=== PATIENT | female | born 1985 | race Caucasian/White ===

== ENCOUNTER 2016-10-31 12:09 | Emergency (ER) | payer MEDICAID ==
[2016-10-31 12:19] VITALS: BP 123/74
--- NOTE | 2016-10-31 12:29 | EDM.PDOC ---
ED HPI ENT - General Chief Complaint: ENT Problem Stated Complaint: SORE THROAT Time Seen by Provider: 10/31/16 12:27 Source of Information: Reports: Patient History Limitations: Reports: No limitations - History of Present Illness INITIAL COMMENTS - FREE TEXT/NARRATIVE: Patient is a 30-year-old female who presents to the ED complaining of a productive cough with clear/yellow mucous, sinus congestion, sneezing, mild sore throat that started this past Tuesday. States Tuesday and she did not sleep well due to the coughing fits. Notes she is will rested today. No fever, nausea/vomiting, or body aches associated with this. Patient smokes a half pack per day for 10 years. States she has been taking OTC cough medicine with little improvement to conditions. Notes 1 wk prior to onset she had nausea with vomiting, body aches, chills, that resolved two days afterwards. States her and son had similar symptoms. She has no pertinent past medical history. Timing/Duration: Reports: Constant, Waxing/waning Severity: mild Location: Reports: nose, throat Quality: Denies: Ache Worsens with: Reports: Other (coughing) Associated Symptoms: Reports: cough, sputum (clear). 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 Denies: Ear pain, Throat swelling Respiratory: Reports: cough, sputum. Denies: shortness of breath Cardiovascular: Denies: Chest pain, Dyspnea on exertion GI/Abdominal: Denies: Abdominal pain, Constipation, Diarrhea, Nausea, Vomiting Musculoskeletal: Denies: muscle pain Neurological: Denies: dizziness, headache, numbness, tingling ED EXAM, ENT - Physical Exam Exam: See Below Exam Limited By: No limitations General Appearance: alert, WD/WN, no apparent distress Eye Exam: bilateral eye: EOMI, PERRL Ears: normal external exam, normal canal, hearing grossly normal, normal TMs Nose: clear rhinorrhea, nasal discharge, nasal swelling Mouth/Throat: Normal inspection, Normal oropharynx, Pharyngeal erythema. No: Dry mucous membrane, Tongue swelling, Tonsillar erythema, Tonsillar exudates, Tonsillar swelling, Trismus, Uvular deviation, Uvular edema Head: atraumatic, normocephalic Neck: normal inspection, supple, non-tender, full range of motion. No: lymphadenopathy (L), lymphadenopathy (R) Respiratory/Chest: no respiratory distress, lungs clear, normal breath sounds, no accessory muscle use, chest non-tender Cardiovascular: normal peripheral pulses, regular rate, rhythm Neurological: alert, oriented, CN II-XII intact, normal cognition Psychiatric: normal affect, normal mood Skin: Warm, Dry, Intact, Normal color Course - Vital Signs Last Recorded V/S: Last Vital Signs Temp 97.6 F 10/31/16 12:17 Pulse 84 10/31/16 12:17 Resp 19 10/31/16 12:17 BP 123/74 10/31/16 12:17 Pulse Ox 95 10/31/16 12:17 - Orders/Labs/Meds Orders: Active Orders 24 hr Category Date Time Status CULTURE STREP A CONFIRMATION [RM] Stat Lab 10/31/16 12:18 Results Rapid Strep w/culture conf [STREP SCRN A RAPID W CULT Lab 10/31/16 12:18 Results CONF] [RM] Stat - Re-Assessments/Exams Free Text/Narrative Re-Assessment/Exam: Influenza and Strep screen obtained. Strep screen was negative. 10/31/16 13:04 Influenza screen was negative. Will send patient home with a prescription for promethazine and codeine. Etiology of symptoms are viral and will resolve in the next few days on there own accord. Instructions as documented on discharge. Departure - Departure Time of Disposition: 13:05 Disposition: Home, Self-Care 01 Condition: good Clinical Impression: Viral upper respiratory tract infection with cough, Bronchitis Nicotine addiction Qualifiers: Nicotine product type: cigarettes Substance use status: uncomplicated Qualified Code(s): F17.210 - Nicotine dependence, cigarettes, uncomplicated Prescriptions: Promethazine HCl/Codeine [Prometh-Codein 6.25-10 mg/5 ml] 5 - 10 ml PO Q6HR PRN #120 ml PRN Reason: Cough Instructions: Smoking Cessation, Tips for Success, [id number], Acute Bronchitis, [id number], Upper Respiratory Infection, Adult, [id number] Referrals: PCP,None [Primary Care Provider] - Claudia Kay PA [Physician Lead Sharepoint Developer] - Forms: ED Department Discharge, Return to Work/School Form Additional Instructions: Influenza and strep screen were negative. Etiology of symptoms are viral and will resolve on their own accord over the next few days. Cough can persist up to 1-2 weeks. Treatment is symptomatic care only. This includes Tylenol and ibuprofen as needed for discomfort. Push the fluids. Ensure adequate rest. Stop smoking. Followup with primary care provider in the next 3-5 days if symptoms have not drastically improved. Take promethazine and codeine 5-10 mls every 6 hours as needed for cough. Suggest taking this at night prior to bed. No driving while taking this medication. Take Mucinex 600 mg twice a day for the next 5 days. Return back to the ED for any new or worsening symptoms. - My Orders Last 24 Hours: My Active Orders 10/31/16 12:18 CULTURE STREP A CONFIRMATION [] Stat Rapid Strep w/culture conf [STREP SCRN A RAPID W CULT CONF] [] Stat - Assessment/Plan Last 24 Hours: My Active Orders 10/31/16 12:18 CULTURE STREP A CONFIRMATION [RM] Stat Rapid Strep w/culture conf [STREP SCRN A RAPID W CULT CONF] [] Stat
== END 2016-10-31 13:26 | disposition home or self-care (01) ==
LOC: JD.ED 12:09
DX: J06.9 Acute upper respiratory infection, unspecified (principal); J40 Bronchitis, not specified as acute or chronic; F41.9 Anxiety disorder, unspecified; F17.210 Nicotine dependence, cigarettes, uncomplicated
CPT/HCPCS: 87081; 87430; 87804; 99283

== ENCOUNTER 2018-04-30 19:54 | Emergency (ER) | payer BC, MEDICAID ==
[2018-04-30 20:05] VITALS: BP 124/90
[2018-04-30] MEDS ORDERED: Diphtheria,Pertussis(Acell),Tetanus Vaccine 0.5 ML SDV IM ONE (20:57)
[2018-04-30] MEDS ORDERED: Lidocaine/EPINEPHrine/Tetracaine Soln 1 ML TOP STA (20:58)
[2018-04-30] MEDS ORDERED: Lidocaine 1% with EPINEPHrine 1:100,000 20 ML MDV INJECT ONE (21:49)
[2018-04-30] MEDS ORDERED: Bupivacaine 0.5% 10 ML SDV INJECT ONE (21:49)
--- NOTE | 2018-04-30 22:19 | EDM.PDOC ---
ED HPI GENERAL MEDICAL PROBLEM - General Chief Complaint: Laceration Stated Complaint: laceration to arm Time Seen by Provider: 04/30/18 20:49 Source of Information: Reports: Patient, Significant Other (Boyfriend) History Limitations: Reports: No Limitations - History of Present Illness INITIAL COMMENTS - FREE TEXT/NARRATIVE: The patient states that she was fishing, seated in a chair perched on some rocks , when the chair flipped over around 18:15 tonight. The patient states that she sustained a cut to her distal left forearm by the rocks. She is otherwise uninjured. The patient believes that her last tetanus vaccination was about 7 years ago, but she is not sure. The patient does not have a PCP. left lower forearm Pain Score (Numeric/FACES): 4 - Related Data Allergies Allergy/AdvReac Type Severity Reaction Status Date / Time No Known Allergies Allergy Verified 04/30/18 20:05 Home Meds: Home Meds . 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: Psychiatric History: Reports: Anxiety Endocrine/Metabolic History: Reports: Obesity/BMI 30+ - Past Surgical History Female Surgical History: Reports: Section (x 1) Social & Family History - Family History Family Medical History: Noncontributory - Tobacco Use Smoking Status *Q: Current Every Day Smoker Years of Tobacco use: 12 Packs/Tins Daily: 0.5 Packs/Tins Daily Comment: Down from 1 ppd - Caffeine Use Caffeine Use: Reports: Coffee - Alcohol Use Alcohol Use History: Yes Alcohol Use Frequency: Socially - Recreational Drug Use Recreational Drug Use: Yes Drug Use in Last 12 Months: No Recreational Drug Type: Reports: Marijuana/Hashish (last smoked in 2007) - Living Situation & Occupation Living situation: Reports: Single, with Significant Other (Boyfriend), with Family (Son) Occupation: Employed ([employer]) ED ROS GENERAL - Review of Systems Review Of Systems: ROS reveals no pertinent complaints other than HPI. ED EXAM, SKIN/RASH Exam: See Below Exam Limited By: No Limitations General Appearance: Alert, WD/WN, No Apparent Distress Extremities: Other (Approximately 8.5 cm laceration in a spiral fashion around the distal left forearm, ulnar aspect. Neurovascular status of the left upper extremity is intact. Strength is normal, with no tendinous injury suspected.) ED SKIN PROCEDURES - Laceration/Wound Repair Left Arm Lac/Wound length In cm: 8.5 Appearance: Subcutaneous, Linear, Clean Distal NVT: Neuro & Vascular Intact, No Tendon Injury Anesthetic Type: Local Local Anesthesia - Lidocaine (Xylocaine): 1% with EPI (50:50 admixture) Local Anesthesia - Bupivicaine (Marcaine): 0.5% Plain (50:50 admixture) Local Anesthetic Volume: 4cc Skin Prep: Providone-Iodine (Betadine) Exploration/Debridement/Repair: Wound Explored, In a Bloodless Field, Explored to Base, No Foreign Material Found, Wound Margins Revised Closed with: Sutures Suture Size: 3-0 # of Sutures: 20 Suture Type: Nylon (Ethilon), Running, Simple Drain Placement: No Sterile Dressing Applied: Nurse Tetanus Status Addressed: Yes Complications: No Course - Vital Signs Last Recorded V/S: Last Vital Signs Temp 37.1 C 04/30/18 20:01 Pulse 87 04/30/18 20:01 Resp 18 04/30/18 20:01 BP 124/90 04/30/18 20:01 Pulse Ox 100 04/30/18 20:01 - Orders/Labs/Meds Meds: Medications Discontinued Medications Generic Name Dose Route Start Last Admin Trade Name Orestes PRN Reason Stop Dose Admin Bupivacaine HCl 10 ml 04/30/18 21:49 04/30/18 22:16 Sensorcaine-Mpf 0.5% INJECT 04/30/18 21:50 10 ml ONETIME ONE Administration Diphtheria/Tetanus/Acell Pertussis 0.5 ml 04/30/18 20:57 04/30/18 21:13 Adacel IM 04/30/18 20:58 0.5 ml .ONCE ONE Administration Lidocaine/Epinephrine 20 ml 04/30/18 21:49 04/30/18 22:16 Xylocaine 1% With Epinephrine 1:100,000 INJECT 04/30/18 21:50 20 ml ONETIME ONE Administration Lidocaine/Tetracaine 4 ml 04/30/18 20:58 04/30/18 21:14 Let Soln TOP 04/30/18 20:59 4 ml ONETIME STA Administration - Re-Assessments/Exams Free Text/Narrative Re-Assessment/Exam: 04/30/18 22:13 There was good blanching to the edges of the wound following application of LET , however, the patient reported inadequate anesthesia, therefore a 50:50 mixture of lidocaine 1% with epinephrine and bupivacaine 0.5% without epinephrine was locally ejected. 20 simple running sutures were placed to close the wound. The patient tolerated the procedure well. A clean bandage will be applied per the RN. Antibiotics are not indicated. The patient received a tetanus vaccination during this ED visit. Departure - Departure Time of Disposition: 22:14 Disposition: Home, Self-Care 01 Condition: Good Clinical Impression: Laceration of left forearm - Discharge Information *PRESCRIPTION DRUG MONITORING PROGRAM REVIEWED*: Not Applicable *COPY OF PRESCRIPTION DRUG MONITORING REPORT IN PATIENT CELI: Not Applicable Instructions: Laceration Care, Adult Referrals: PCP,None [Primary Care Provider] - Forms: ED Department Discharge Additional Instructions: You were seen in the emergency room after sustaining a laceration to your left forearm. Your wound was closed with 20 running sutures. Keep the wound clean with ordinary soap and water when you bathe, then pat dry. You may apply a clean dressing if there is a chance that the wound may get dirty , or if the sutures interfere with your clothing. We recommend that you NOT apply an antibiotic ointment. The sutures should be ready for removal by , 05/11/2018. This can be done at a walk-in clinic, by a nurse at your doctor's office, or in the ER. DO NOT attempt to remove the sutures by yourself. Take [id number] Tylenol or ibuprofen as needed for discomfort. You received a tetanus vaccination during your ER visit. The wound should not get infected, however, if there is a concern of infection, please return to the ER for reevaluation.
== END 2018-04-30 22:35 | disposition home or self-care (01) ==
LOC: JD.ED 19:54
DX: S51.812A Laceration without foreign body of left forearm, initial encounter (principal); F17.210 Nicotine dependence, cigarettes, uncomplicated; Z23 Encounter for immunization; W22.8XXA Striking against or struck by other objects, initial encounter
CPT/HCPCS: 12004; 90471; 90715; 99283; A9270; J3490

== ENCOUNTER 2020-12-24 19:44 | Emergency (ER) | payer SELFPAY ==
[2020-12-24] MEDS ORDERED: Ondansetron 4 MG/2 ML SDV IVPUSH ONE (20:01)
[2020-12-24] MEDS ORDERED: Sodium Chloride 0.9% 1,000 ML IV ONE (20:01)
[2020-12-24 20:04] VITALS: BP 117/76; PULSE 84
--- NOTE | 2020-12-24 20:14 | EDM.PDOC ---
ED HPI GENERAL MEDICAL PROBLEM - General Chief Complaint: Abdominal Pain Stated Complaint: abdominal pain Time Seen by Provider: 12/24/20 19:53 Source of Information: Reports: Patient, Old Records (Visit and labs from [facility] visit today), RN Notes Reviewed History Limitations: Reports: No Limitations - History of Present Illness INITIAL COMMENTS - FREE TEXT/NARRATIVE: Patient is a 35-year-old female who presents to the ER for the evaluation of her abdomen pain. Patient woke up this morning, with diffuse abdominal discomfort, that seemed quite crampy in nature, she thought maybe she had to use the restroom, so she went to the bathroom to had a bowel movement. She notes this did not seem to relieve the crampiness. She then went to work in [facility], and felt that she had to use the bathroom again due to the cramping nature, and again this seemed to not help the abdomen pain. She notes that she has gone to the bathroom about 6 or 8 times today due to the cramping sensation. She points to her mid abdomen as the source of discomfort, and states that it radiates around her abdomen into her back. She does have nausea but no vomiting, she has had a decreased appetite today as well. She denies any fevers, diarrhea, chills or shortness of breath. She is not complaining of any dysuria, frequency or urgency. Patient has an IUD, so states she does not think she be . She is not been around anyone that is been known to be sick. She states that no one else is sick like this in her household, and does not think that she could have ate something bad. She does state that the cramping reminds her of the time she did have food poisoning, but she has not developed the the vomiting that associated with it. Patient states that she has felt somewhat constipated as well. She denies any other past medical history, and has not had any abdomen surgeries other than a . Patient states that her last meal was around 1 PM, and this was cereal. Abdomen Pain Score (Numeric/FACES): 6 - Related Data Allergies Allergy/AdvReac Type Severity Reaction Status Date / Time No Known Allergies Allergy Verified 04/30/18 20:05 Home Meds: Home Meds . 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 Psychiatric History: Reports: Anxiety Endocrine/Metabolic History: Reports: Obesity/BMI 30+ - Past Surgical History Female Surgical History: Reports: Section Social & Family History - Family History Family Medical History: No Pertinent Family History - Tobacco Use Tobacco Use Status *Q: Current Every Day Tobacco User Years of Tobacco use: 15 Packs/Tins Daily: 0.5 - Caffeine Use Caffeine Use: Reports: None - Recreational Drug Use Recreational Drug Use: No - Living Situation & Occupation Living situation: Reports: Single, with Significant Other (Boyfriend), with Family (Son) Occupation: Employed ([employer]) ED ROS GENERAL - Review of Systems Review Of Systems: Comprehensive ROS is negative, except as noted in HPI. ED EXAM, GI/ABD - Physical Exam Exam: See Below Exam Limited By: No Limitations General Appearance: Alert, WD/WN, No Apparent Distress Eyes: Bilateral: Normal Appearance Respiratory/Chest: No Respiratory Distress, Lungs Clear, Normal Breath Sounds, No Accessory Muscle Use, Chest Non-Tender Cardiovascular: Normal Peripheral Pulses, Regular Rate, Rhythm, No Edema GI/Abdominal Exam: Normal Bowel Sounds, Soft, No Distention, No Mass, Tender (lower abdomen mainly with deep palpation.) Extremities: Normal Inspection, Normal Range of Motion, Normal Capillary Refill Neurological: Alert, Oriented, CN II-XII Intact, Normal Cognition, No Motor/Sensory Deficits Psychiatric: Normal Affect, Normal Mood Skin Exam: Warm, Dry, Intact, Normal Color, No Rash Course - Vital Signs Last Recorded V/S: Last Vital Signs Temp 97.8 F 12/24/20 20:01 Pulse 84 12/24/20 20:01 Resp 20 12/24/20 20:01 BP 117/76 12/24/20 20:01 Pulse Ox 99 12/24/20 20:01 - Orders/Labs/Meds Orders: Active Orders 24 hr Category Date Time Status Peripheral IV Care [RC] . DIRECTED Care 12/24/20 20:00 Ordered Abdomen Pelvis w Cont [CT] Stat Exams 12/24/20 20:01 Ordered Sodium Chloride 0.9% [Saline Flush] Med 12/24/20 20:00 Active 10 ml FLUSH ASDIRECTED PRN Sodium Chloride 0.9% [Saline Flush] Med 12/24/20 21:00 Active 10 ml FLUSH BOLUS Peripheral IV Insertion Adult [OM.PC] Routine Oth 12/24/20 20:00 Ordered Medication Orders Sodium Chloride (Sodium Chloride 0.9% 10 Ml Syringe) 10 ml FLUSH ASDIRECTED PRN PRN Reason: Keep Vein Open Last Admin: 12/24/20 21:23 Dose: 10 ml Documented by: Admin: 12/24/20 20:17 Dose: 10 ml Documented by: EVELYNE Sodium Chloride (Sodium Chloride 0.9% 10 Ml Syringe) 10 ml FLUSH BOLUS MARIA DEL CARMEN Meds: Medications Generic Name Dose Route Start Last Admin Trade Name Freq PRN Reason Stop Dose Admin Sodium Chloride 10 ml 12/24/20 20:00 12/24/20 21:23 Sodium Chloride 0.9% 10 Ml Syringe FLUSH 10 ml ASDIRECTED PRN Administration Keep Vein Open Sodium Chloride 10 ml 12/24/20 21:00 Sodium Chloride 0.9% 10 Ml Syringe FLUSH BOLUS MARIA DEL CARMEN Discontinued Medications Generic Name Dose Route Start Last Admin Trade Name Freq PRN Reason Stop Dose Admin Diatrizoate Meglum/Diatrizoate Sod 40 ml 12/24/20 21:02 12/24/20 21:24 Diatrizoate Meglumine/Diatrizoate Sodium 37% 120 Ml Bottle PO 12/24/20 21:03 20 ml ONETIME ONE Administration Sodium Chloride 1,000 mls @ 999 mls/hr 12/24/20 20:01 12/24/20 20:15 Normal Saline IV 12/24/20 21:01 999 mls/hr ONETIME ONE Administration Iopamidol 50 ml 12/24/20 20:51 12/24/20 21:23 Iopamidol 612 Mg/Ml 50 Ml Sdv IVPUSH 12/24/20 20:52 20 ml ONETIME ONE Administration Iopamidol 100 ml 12/24/20 20:51 12/24/20 21:23 Iopamidol 612 Mg/Ml 100 Ml Bottle IVPUSH 12/24/20 20:52 100 ml ONETIME ONE Administration Ondansetron HCl 4 mg 12/24/20 20:01 12/24/20 20:15 Ondansetron 4 Mg/2 Ml Sdv IVPUSH 12/24/20 20:02 4 mg ONETIME ONE Administration - Re-Assessments/Exams Free Text/Narrative Re-Assessment/Exam: 12/24/20 20:15 Patient presents to the ER for her abdomen pain. She was seen at the walk-in clinic earlier today, was evaluated had some labs taken, demonstrated a urinalysis that was unremarkable hCG was negative, patient's white count is elevated at 16.9 with 78% neutrophils on their auto differential. A CMP, amylase and lipase are still pending at this time. We will go ahead get IV established, give the patient something for nausea and perform abdomen pelvis CT with IV and oral contrast patient will also get some IV fluids. 12/24/20 21:03 Lipase and CMP are unremarkable from Sarah Ann's labs done at [facility] today. 12/24/20 21:[address] has been performed, and demonstrates no evidence of acute appendicitis, there is a tiny umbilical hernia containing fat, a prominent posterior disc osteophyte complex protrudes to the spinal canal L1-L2 gallbladder looks normal with no ductal dilatation no stones noted. Likely the patient could be having abdominal pain, nausea due to constipation, there was some stool noted on the CT report by myself throughout her colon. The oral contrast should provide a laxative effect tonight and have her start on stool softeners on a daily basis to see if this helps regulate her out, and have her return to the ER with worsening symptoms. Departure - Departure Time of Disposition: 21:58 Disposition: Home, Self-Care 01 Condition: Good Clinical Impression: Generalized abdominal pain Constipation Qualifiers: Constipation type: other constipation type Qualified Code(s): K59.09 - Other constipation - Discharge Information *PRESCRIPTION DRUG MONITORING PROGRAM REVIEWED*: No *COPY OF PRESCRIPTION DRUG MONITORING REPORT IN PATIENT CELI: No Instructions: Constipation, Adult, [id number] Referrals: PCP,None [Primary Care Provider] - Forms: ED Department Discharge Additional Instructions: You were seen in this ER for your abdomen pain. Review of your labs done at the walk-in clinic today did demonstrate an elevated white count, your metabolic panel was normal. CT done at today's visit demonstrates no sign of acute appendicitis, also there are no abnormalities within the gallbladder. You did have some stool throughout your colon, more consistent with constipation in nature. The oral contrast provided at today's visit should provide a laxative effect to help hopefully provide a few bowel movements for you. Highly and strongly recommend that you obtain a stool softener like Colace, Dulcolax, or MiraLAX and take on a daily basis, to help soften the stools and keep your bowel health regular. Increase your oral fluid hydration at home, you may use Tylenol or ibuprofen every 6 hours as needed for ongoing abdomen pain or discomfort. Please return to the ER if you develop any worsening symptoms like fever/l ocalizing pain in the right lower quadrant or right upper quadrant, or if you cannot keep food or fluids down by mouth. Sepsis Event Note (ED) - Evaluation Sepsis Screening Result: No Definite Risk - Focused Exam Vital Signs: Vital Signs Temp Pulse Resp BP Pulse Ox 12/24/20 20:01 97.8 F 84 20 117/76 99 - My Orders Last 24 Hours: My Active Orders 12/24/20 20:00 Peripheral IV Care [RC] . DIRECTED Sodium Chloride 0.9% [Saline Flush] 10 ml FLUSH ASDIRECTED PRN Peripheral IV Insertion Adult [OM.PC] Routine 12/24/20 20:01 Abdomen Pelvis w Cont [CT] Stat 12/24/20 21:00 Sodium Chloride 0.9% [Saline Flush] 10 ml FLUSH BOLUS - Assessment/Plan Last 24 Hours: My Active Orders 12/24/20 20:00 Peripheral IV Care [RC] . DIRECTED Sodium Chloride 0.9% [Saline Flush] 10 ml FLUSH ASDIRECTED PRN Peripheral IV Insertion Adult [OM.PC] Routine 12/24/20 20:01 Abdomen Pelvis w Cont [CT] Stat 12/24/20 21:00 Sodium Chloride 0.9% [Saline Flush] 10 ml FLUSH BOLUS
[2020-12-24] MEDS: Sodium Chloride 0.9% 10 ML Syringe FLUSH PRN ×2 (20:17→21:23)
[2020-12-24] MEDS ORDERED: Iopamidol 612 MG/ML 100 ML Bottle IVPUSH ONE (20:51)
[2020-12-24] MEDS ORDERED: Iopamidol 612 MG/ML 50 ML SDV IVPUSH ONE (20:51)
[2020-12-24] MEDS ORDERED: Sodium Chloride 0.9% 10 ML Syringe FLUSH SCH (21:00)
[2020-12-24] MEDS ORDERED: Diatrizoate Meglumine/Diatrizoate Sodium 37% 120 ML Bottle PO ONE (21:02)
--- NOTE | 2020-12-25 08:34 | CT ---
CT abdomen and pelvis Technique: Multiple axial sections were obtained from above the dome of the diaphragm inferiorly through the pubic symphysis. Intravenous and oral contrast was utilized. Delayed images were also obtained through the bladder. Reconstructed coronal and sagittal images were obtained. Comparison: No prior abdominal imaging is available. Findings: Visualized lung bases show nothing acute. Liver contains no focal parenchymal abnormality. Spleen size is normal. Adrenal glands show no nodule. Pancreas shows no discrete abnormality. Gallbladder contains no calcified gallstones. Kidneys show symmetric contrast enhancement without hydronephrosis or mass. Abdominal aorta shows no aneurysm. No retroperitoneal adenopathy or mesenteric abnormalities are seen. Minimal fat-containing umbilical hernia is noted. Appendix is seen which is normal. IUD is noted within the endometrial region of the uterus. No pelvic mass or adenopathy is seen. Delayed images show contrast within the ureter. Bone window settings were reviewed which show disc space narrowing at L1-2 with posterior disc bulge and mild posterior calcification within the disc bulge. Impression: 1. Findings as noted above which are chronic. 2. Nothing acute is appreciated on CT study of the abdomen and pelvis. Diagnostic code #2 I agree with preliminary report from [facility], finalized on 12/24/20, 10:51 PM CDT, code 1
== END 2020-12-24 22:20 | disposition home or self-care (01) ==
LOC: JD.ED 19:44
DX: K59.09 Other constipation (principal); E66.9 Obesity, unspecified; Z68.39 Body mass index [BMI] 39.0-39.9, adult; Z72.0 Tobacco use
CPT/HCPCS: 74177; 96374; 99284; J2405; J7030; Q9963; Q9967